=== PATIENT | male | born 1970 | race Hispanic/Latino ===

== ENCOUNTER 2017-08-02 20:12 | Emergency (ER) | payer SELFPAY ==
[2017-08-02 20:32] VITALS: TEMP 98.7
[2017-08-02] MEDS ORDERED: Oxycodone/Acetaminophen 5/325 mg Tab PO STA (21:04)
[2017-08-02] MEDS ORDERED: Oxycodone/Acetaminophen 5/325 mg Tab ONE (21:20)
[2017-08-02 21:26] VITALS: BP 146/96; PULSE 82; RESP 18; O2SAT 99
--- NOTE | 2017-08-02 21:30 | C.PDOC ---
History Of Present Illness 47 y/o male with PMHx of Raynauds syndrome, HTN, and recent cellulitis, presents today complaining of pain to his right breast/upper abdomen that radiates around to the back, which began today. There are some lesions noted to the area. Patient reports he had shingles in that area several years ago and has not received a vaccine in the interim. Otherwise he denies any fever or chills. Time Seen by Provider: 08/02/17 20:39 Chief Complaint (Nursing): Abnormal Skin Integrity History Per: Patient History/Exam Limitations: no limitations Onset/Duration Of Symptoms: Days (x1) Current Symptoms Are (Timing): Still Present Past Medical History Reviewed: Historical Data, Nursing Documentation, Vital Signs Vital Signs: Last Vital Signs Temp 98.7 F 08/02/17 20:26 Pulse 82 08/02/17 21:25 Resp 18 08/02/17 21:25 BP 146/96 H 08/02/17 21:25 Pulse Ox 99 08/02/17 21:40 - Medical History PMH: HTN Other PMH: Cellulitis Family History: States: No Known Family Hx - Social History Hx Alcohol Use: Yes Hx Substance Use: No Review Of Systems Constitutional: Negative for: Fever, Chills Skin: Positive for: Rash Physical Exam - Physical Exam Appears: No Acute Distress Skin: Rash (Right upper abdomen/chest: erythematous base with few scabs (pt reports were vesicles earlier)) Head: Atraumatic, Normacephalic Eye(s): bilateral: PERRL, EOMI Neck: Supple Chest: Symmetrical, No Tenderness Cardiovascular: Rhythm Regular, No Murmur Respiratory: No Rales, No Rhonchi, No Wheezing, Other (Lungs clear to auscultation) Extremity: Bilateral: Atraumatic, Normal ROM Neurological/Psych: Oriented x3, Normal Speech ED Course And Treatment O2 Sat by Pulse Oximetry: 99 (RA) Pulse Ox Interpretation: Normal Medical Decision Making Medical Decision Making: Initial Impression: 47 y/o M with shingles Plan: Patient treated with PO Valtrex, Percocet, and Prednisone Counseled patient regarding dx of shingles. Patient is medically stable and will be discharged home. Advised to take all medication as prescribed and follow up with PMD or the clinic. Disposition Counseled Patient/Family Regarding: Diagnosis, Need For Followup, Rx Given - Disposition Referrals: [facility] at [facility] [Outside] Disposition: HOME/ ROUTINE Disposition Time: 21:37 Condition: STABLE Additional Instructions: Please take medications as prescribed. Follow up in medical clinic in 2-3 days. Continue with ibuprofen and other medications. Return to ER for any worse symptoms. Prescriptions: oxyCODONE/Acetaminophen [Percocet 5/325 mg Tab] 1 ea PO Q4 #12 tab predniSONE [predniSONE Tab] 40 mg PO DAILY #10 tab Valacyclovir HCl [Valtrex] 1 gm PO TID #20 tablet Instructions: Shingles Forms: [employer] (Mozambican), General Discharge Instructions - Clinical Impression Clinical Impression: Herpes zoster - PA / IP/MOSAIC TECHNICIAN / Resident Statement MD/DO has reviewed & agrees with the documentation as recorded. - Scribe Statement The provider has reviewed the documentation as recorded by the Scribe (Rafaela Li) All medical record entries made by the Scribe were at my direction and personally dictated by me. I have reviewed the chart and agree that the record accurately reflects my personal performance of the history, physical exam, medical decision making, and the department course for this patient. I have also personally directed, reviewed, and agree with the discharge instructions and disposition.
[2017-08-02] MEDS ORDERED: Lidocaine 5% Patch TD STA (21:35)
[2017-08-02] MEDS ORDERED: Lidocaine 5% Patch TD ONE (21:47)
== END 2017-08-02 21:56 | disposition home or self-care (01) ==
LOC: C.ER 20:12
DX: B02.9 Zoster without complications (principal); I10 Essential (primary) hypertension; I73.00 Raynaud's syndrome without gangrene

== ENCOUNTER 2017-08-14 20:11 | Emergency (ER) | payer SELFPAY ==
[2017-08-14 20:40] VITALS: BP 169/107; PULSE 68; RESP 20; TEMP 98.1; O2SAT 96
[2017-08-14] MEDS ORDERED: Oxycodone/Acetaminophen 5/325 mg Tab PO STA (20:56)
--- NOTE | 2017-08-14 20:58 | C.PDOC ---
History Of Present Illness The patient is a 47-year-old male who was evaluated in this ED on 08/02 and was diagnosed with shingles. Patient was discharged with medications, with which he states he has been complaint. Patient noticed he still has blisters to his chest region, and returns to the ED for further evaluation. He denies fever, chills. Time Seen by Provider: 08/14/17 20:47 Chief Complaint (Nursing): Abnormal Skin Integrity History Per: Patient History/Exam Limitations: no limitations Onset/Duration Of Symptoms: Days Current Symptoms Are (Timing): Still Present Additional History Per: Patient Past Medical History Reviewed: Historical Data, Nursing Documentation, Vital Signs Vital Signs: Last Vital Signs Temp 98.1 F 08/14/17 20:34 Pulse 68 08/14/17 20:34 Resp 20 08/14/17 20:34 BP 169/107 H 08/14/17 20:34 Pulse Ox 96 08/14/17 22:22 - Medical History PMH: HTN Surgical History: No Surg Hx Family History: States: Unknown Family Hx - Social History Hx Alcohol Use: Yes Hx Substance Use: No - Immunization History Hx Tetanus Toxoid Vaccination: No Hx Influenza Vaccination: No Hx Pneumococcal Vaccination: No Review Of Systems Constitutional: Negative for: Fever, Chills Skin: Positive for: Rash Physical Exam - Physical Exam Appears: Non-toxic, No Acute Distress Skin: Warm, Dry, Rash (blisters to right anterior chest wall with erythematous base ) Head: Atraumatic, Normacephalic Eye(s): bilateral: Normal Inspection Oral Mucosa: Moist Neck: Supple Chest: Symmetrical, No Deformity, No Tenderness Cardiovascular: Rhythm Regular, No Murmur Respiratory: Normal Breath Sounds, No Rales, No Rhonchi, No Wheezing Extremity: Normal ROM, Capillary Refill (less than 2 seconds ) Neurological/Psych: Oriented x3, Normal Speech, Normal Cognition ED Course And Treatment O2 Sat by Pulse Oximetry: 96 (on RA) Pulse Ox Interpretation: Normal Medical Decision Making Medical Decision Making: Impression: 47 year old male with blisters to chest Progress: Percocet PO and Valtrex PO administered. On re-exam, patient is resting comfortably, showing no signs of distress and is stable for discharge. Patient was given refill for medication and is advised to follow up with his PMD within 1-2 days for further evaluation. Advised to return to the ED if symptoms persist or worsen. Disposition Counseled Patient/Family Regarding: Diagnosis, Need For Followup, Rx Given - Disposition Disposition: HOME/ ROUTINE Disposition Time: 20:57 Condition: STABLE Additional Instructions: Follow up with your primary medical doctor or clinic in 2-5 days for further evaluation. Take medications as prescribed. Return to the emergency department at any time if symptoms persist or worsen. Prescriptions: oxyCODONE/Acetaminophen [Percocet 5/325 mg Tab] 1 tab PO Q8 PRN #14 tab PRN Reason: Pain, Severe (8-10) valACYclovir [Valtrex] 1 gm PO TID 7 Days #21 tab Instructions: Shingles (DC) Forms: [employer] (Irish) - POA Present On Arrival: None - Clinical Impression Clinical Impression: Herpes zoster - PA / IRRIGATION EQUIPMENT INSTALLER / Resident Statement MD/DO has reviewed & agrees with the documentation as recorded. - Scribe Statement The provider has reviewed the documentation as recorded by the Scribe (Marjorie Bedoya) All medical record entries made by the Scribe were at my direction and personally dictated by me. I have reviewed the chart and agree that the record accurately reflects my personal performance of the history, physical exam, medical decision making, and the department course for this patient. I have also personally directed, reviewed, and agree with the discharge instructions and disposition.
[2017-08-14] MEDS ORDERED: Oxycodone/Acetaminophen 5/325 mg Tab ONE (21:02)
== END 2017-08-14 21:47 | disposition home or self-care (01) ==
LOC: C.ER 20:11
DX: B02.9 Zoster without complications (principal)

== ENCOUNTER 2017-10-30 23:03 | Emergency (ER) | payer SELFPAY ==
[2017-10-31 00:04] VITALS: RESP 20
[2017-10-31] MEDS ORDERED: Oxycodone/Acetaminophen 5/325 mg Tab PO STA (00:23)
--- NOTE | 2017-10-31 00:25 | C.PDOC ---
History Of Present Illness 47 year old male presents to the ED for evaluation of painful rash developed over his right chest wall and right mid back area that started few days ago. Patient admits to having similar symptoms in the past when he was diagnosed with shingles. Otherwise, Patient denies fever, chills, headache, dizziness, CP , SOB, dyspnea, cough, palpitations, abd. pain, N/V/D,denies known sick contact or recent travel. Ambulate to ED for evaluation, not in nay apparent distress. Time Seen by Provider: 10/30/17 23:08 Chief Complaint (Nursing): Back Pain History Per: Patient History/Exam Limitations: no limitations Onset/Duration Of Symptoms: Days Current Symptoms Are (Timing): Still Present Quality Of Discomfort: "Pain" Severity: None Previous Symptoms: Other (shingles) Recent travel outside of the [place]: No Additional History Per: Patient Past Medical History Reviewed: Historical Data, Nursing Documentation, Vital Signs Vital Signs: Last Vital Signs Temp 98.6 F 10/30/17 23:57 Pulse 98 H 10/30/17 23:57 Resp 20 10/30/17 23:57 BP 161/100 H 10/30/17 23:57 Pulse Ox 95 10/31/17 00:38 - Medical History PMH: HTN Surgical History: No Surg Hx Family History: States: Unknown Family Hx - Social History Hx Alcohol Use: Yes Hx Substance Use: No - Immunization History Hx Tetanus Toxoid Vaccination: No Hx Influenza Vaccination: No Hx Pneumococcal Vaccination: No Review Of Systems Constitutional: Negative for: Fever, Chills Cardiovascular: Positive for: Chest Pain. Negative for: Palpitations Respiratory: Negative for: Cough, Shortness of Breath Gastrointestinal: Negative for: Nausea, Vomiting, Abdominal Pain Musculoskeletal: Positive for: Back Pain Skin: Positive for: Rash Neurological: Negative for: Weakness, Numbness Physical Exam - Physical Exam Appears: Non-toxic, No Acute Distress Skin: Normal Color, Warm, Dry, Rash (vesicular rash on erythematous base over right chest wall, extending to right middle back overlying Right T8-9 dermatome. No cellulitis, no evidence of superimposed inf.), No Ecchymosis Head: Normacephalic Eye(s): bilateral: PERRL Nose: No Flaring, No Discharge Oral Mucosa: Moist, No Drooling Tongue: Normal Appearing Lips: Normal Appearing Throat: No Erythema Neck: Trachea Midline, No Midline Cervical Tenderness, Supple Chest: Symmetrical, No Deformity, No Tenderness, No Ecchymosis, No Subcutaneous Emphysema Cardiovascular: Rhythm Regular, No Murmur, No JVD Respiratory: No Decreased Breath Sounds, No Accessory Muscle Use, No Rales, No Rhonchi, No Stridor, No Wheezing Gastrointestinal/Abdominal: Soft, No Tenderness, No Distention, No Guarding Back: No CVA Tenderness, No Vertebral Tenderness Extremity: Normal ROM, No Tenderness, Capillary Refill (< 2 seconds), No Swelling Neurological/Psych: Oriented x3, Normal Speech, Normal Motor, Normal Sensation Gait: Steady ED Course And Treatment O2 Sat by Pulse Oximetry: 95 (ON RA) Pulse Ox Interpretation: Normal Progress Note: Plan: - Percocet 1 tab PO. - Valtrex 1,000 mg PO. - Prednisone 60 mg PO. On re-eval pt is afebrile, hemodynamically stable. Non- toxic. Tolerate PO well in the ED. Pulse OX 95% on RA. ENT: no acute findings. Uvula midline, no edema. Neck: supple, (-) JVD. Lungs: CTA B/L, BS equal B/L. Abd: soft, non-tender. Neurologically intact. SKin: exam c/w Herpes Zoster over Right T8-9 dermatome, no evidence of superimposed inf. Pt advised on course of ds. ref. to F/u with PMD in 2-3 days for re-eval. return to ED if any worsening or new changes. Disposition Counseled Patient/Family Regarding: Diagnosis, Need For Followup, Rx Given - Disposition Referrals: [facility] [Outside] Disposition: HOME/ ROUTINE Disposition Time: 00:23 Condition: STABLE Additional Instructions: Cover rash Take medication as prescribed Follow up with PMD in 2-3 days for re-evaluation. return to ED if any worsening or new changes. Prescriptions: oxyCODONE/Acetaminophen [Percocet 5/325 mg Tab] 1 tab PO BID PRN #7 tab PRN Reason: Pain Prednisone [Deltasone] 40 mg PO DAILY #6 tablet valACYclovir [Valtrex] 1,000 mg PO TID #21 tab Instructions: Shingles (DC) Forms: [employer] (Czech) - Clinical Impression Clinical Impression: Shingles - PA / RADIO TALK SHOW HOST / Resident Statement MD/DO has reviewed & agrees with the documentation as recorded. - Scribe Statement The provider has reviewed the documentation as recorded by the Scribe Charles Mitchell All medical record entries made by the Meriibe were at my direction and personally dictated by me. I have reviewed the chart and agree that the record accurately reflects my personal performance of the history, physical exam, medical decision making, and the department course for this patient. I have also personally directed, reviewed, and agree with the discharge instructions and disposition.
--- NOTE | 2017-10-31 00:27 | C.PDOC ---
History Of Present Illness 47 year old male presents to the ED for evaluation of painful rash developed over his right chest wall and right back area that started few days ago. Patient admits to having similar symptoms in the past when he was diagnosed with shingles. Patient denies fever, chills, palpitations, SOB, weakness, numbness, recent travel. Time Seen by Provider: 10/30/17 23:08 Chief Complaint (Nursing): Back Pain History Per: Patient History/Exam Limitations: no limitations Onset/Duration Of Symptoms: Days Current Symptoms Are (Timing): Still Present Quality Of Discomfort: "Pain" Previous Symptoms: Other (shingles) Associated Symptoms: None Recent travel outside of the [place]: No Additional History Per: Patient Past Medical History Reviewed: Historical Data, Nursing Documentation, Vital Signs Vital Signs: Last Vital Signs Temp 98.6 F 10/30/17 23:57 Pulse 98 H 10/30/17 23:57 Resp 20 10/30/17 23:57 BP 161/100 H 10/30/17 23:57 Pulse Ox 95 10/30/17 23:57 - Medical History PMH: HTN Surgical History: No Surg Hx Family History: States: Unknown Family Hx - Social History Hx Alcohol Use: Yes Hx Substance Use: No - Immunization History Hx Tetanus Toxoid Vaccination: No Hx Influenza Vaccination: No Hx Pneumococcal Vaccination: No Review Of Systems Except As Marked, All Systems Reviewed And Found Negative. Constitutional: Negative for: Fever, Chills Cardiovascular: Positive for: Chest Pain Respiratory: Negative for: Shortness of Breath Gastrointestinal: Negative for: Nausea, Vomiting, Abdominal Pain Musculoskeletal: Positive for: Back Pain Skin: Positive for: Rash Physical Exam - Physical Exam Appears: Non-toxic, No Acute Distress Skin: Normal Color, Warm, Dry, Rash (vesicular rash with erythematous base over right chest wall extending to right middle back area. No cellulitis), No Ecchymosis Head: Atraumatic, Normacephalic Eye(s): bilateral: Normal Inspection, PERRL Neck: Normal ROM, Trachea Midline, No Midline Cervical Tenderness, Supple Chest: Symmetrical, No Deformity, No Tenderness Cardiovascular: Rhythm Regular Respiratory: Normal Breath Sounds, No Rales, No Rhonchi, No Wheezing Extremity: Normal ROM, No Tenderness, Capillary Refill (<2 seconds), No Deformity, No Swelling Neurological/Psych: Oriented x3, Normal Speech, Normal Motor, Normal Sensation Gait: Steady ED Course And Treatment O2 Sat by Pulse Oximetry: 95 (ON RA) Pulse Ox Interpretation: Normal Progress Note: Plan: - Percocet 1 tab PO. - Valtrex 1,000 mg PO. - Prednisone 60 mg PO. On re-eval pt is afebrile, hemodynamically stable. Non- toxic. Tolerate PO well in the ED. Pulse OX 100% on RA. ENT: no acute findings. Uvula midline, no edema. Neck: supple, (-) JVD. Lungs: CTA B/L, BS equal B/L. Abd: soft, non-tender. Neurologically intact. Disposition - Disposition Forms: [employer] (Italian) - PA / AIR POLLUTION AUDITOR / Resident Statement MD/DO has reviewed & agrees with the documentation as recorded. - Scribe Statement The provider has reviewed the documentation as recorded by the Scribe Charles Mitchell All medical record entries made by the Scribe were at my direction and personally dictated by me. I have reviewed the chart and agree that the record accurately reflects my personal performance of the history, physical exam, medical decision making, and the department course for this patient. I have also personally directed, reviewed, and agree with the discharge instructions and disposition.
[2017-10-31] MEDS ORDERED: Oxycodone/Acetaminophen 5/325 mg Tab ONE (01:08)
[2017-10-31 01:32] VITALS: BP 174/98; PULSE 94; TEMP 98.1; O2SAT 96
== END 2017-10-31 01:32 | disposition home or self-care (01) ==
LOC: C.ER 23:03
DX: B02.9 Zoster without complications (principal)